=== PATIENT | male | born 1950 | race Hispanic/Latino ===

== ENCOUNTER 2018-09-23 20:07 | Emergency (ER) | payer MEDICAID, MEDICARE ==
--- NOTE | 2018-09-23 22:07 | Emergency Department Report ---
ED Psych HPI - General Chief Complaint: Psych Stated Complaint: PSYCH Time Seen by Provider: 09/23/18 21:41 Source: patient, EMS Mode of arrival: Stretcher Limitations: Physical Limitation (Psychiatric) - History of Present Illness MD Complaint: other (Abnormal behavior) -: Sudden Associated Psychiatric Symptoms: racing thoughts, auditory hallucinations Quality: constant Improves With: none Worsens With: none Context: not taking psychiatric Treatments Prior to Arrival: none - Related Data Home Medications Medication Instructions Recorded Confirmed Last Taken Unobtainable 09/23/18 09/23/18 Unknown Allergies Allergy/AdvReac Type Severity Reaction Status Date / Time No Known Allergies Allergy Unverified 09/23/18 20:20 ED Review of Systems ROS: Stated complaint: PSYCH Other details as noted in HPI Comment: All other systems reviewed and negative Constitutional: denies: chills, fever Eyes: denies: eye pain, eye discharge, vision change ENT: denies: ear pain, throat pain Respiratory: denies: cough, shortness of breath, wheezing Cardiovascular: denies: chest pain, palpitations Endocrine: no symptoms reported Gastrointestinal: denies: abdominal pain, nausea, diarrhea Genitourinary: denies: urgency, dysuria Musculoskeletal: denies: back pain, joint swelling, arthralgia Skin: denies: rash, lesions Neurological: denies: headache, weakness, paresthesias Psychiatric: auditory hallucinations, visual hallucinations. denies: anxiety, depression, homicidal thoughts, suicidal thoughts Hematological/Lymphatic: denies: easy bleeding, easy bruising ED Past Medical Hx - Past Medical History Additional medical history: unable to assess - Surgical History Additional Surgical History: unable to assess - Social History Smoking Status: Current Every Day Smoker - Medications Home Medications: Home Medications Medication Instructions Recorded Confirmed Last Taken Type Unobtainable 09/23/18 09/23/18 Unknown History ED Physical Exam - General Limitations: No Limitations General appearance: alert, anxious - Head Head exam: Present: atraumatic, normocephalic - Eye Eye exam: Present: normal appearance - ENT ENT exam: Present: mucous membranes moist - Neck Neck exam: Present: normal inspection - Respiratory Respiratory exam: Present: normal lung sounds bilaterally. Absent: respiratory distress - Cardiovascular Cardiovascular Exam: Present: regular rate, normal rhythm. Absent: systolic murmur, diastolic murmur, rubs, gallop - GI/Abdominal GI/Abdominal exam: Present: soft, normal bowel sounds - Rectal Rectal exam: Present: deferred - Extremities Exam Extremities exam: Present: normal inspection - Back Exam Back exam: Present: normal inspection - Neurological Exam Neurological exam: Present: alert, oriented X3 - Psychiatric Psychiatric exam: Present: anxious - Skin Skin exam: Present: warm, dry, intact, normal color. Absent: rash ED Course Vital Signs 09/23/18 20:17 Temperature 98.4 F Pulse Rate 112 H Respiratory 18 Rate Blood Pressure 160/90 O2 Sat by Pulse 98 Oximetry - Consultations Consultation #1: 09/24/18 03:51 I consulted the neurosurgeon medical authorization specialist Dr. Desouza at [facility]. She recommended transferring the patient's to [facility] for higher level. She will be the accepting physician at [facility]. ED Medical Decision Making - Lab Data Result diagrams: 09/23/18 22:31 09/23/18 22:31 Lab Results 09/23/18 09/23/18 09/23/18 Range/Units 22:31 22:31 22:31 WBC 9.4 (4.5-11.0) K/mm3 RBC 4.14 (3.65-5.03) M/mm3 Hgb 11.8 (11.8-15.2) gm/dl Hct 36.3 (35.5-45.6) % MCV 88 (84-94) fl MCH 28 (28-32) pg MCHC 33 (32-34) % RDW 14.1 (13.2-15.2) % Plt Count 326 (140-440) K/mm3 Lymph % (Auto) 28.6 (13.4-35.0) % Campbell % (Auto) 7.9 H (0.0-7.3) % Eos % (Auto) 1.3 (0.0-4.3) % Baso % (Auto) 0.7 (0.0-1.8) % Lymph # 2.7 (1.2-5.4) K/mm3 Campbell # 0.7 (0.0-0.8) K/mm3 Eos # 0.1 (0.0-0.4) K/mm3 Baso # 0.1 (0.0-0.1) K/mm3 Seg Neutrophils % 61.5 (40.0-70.0) % Seg Neutrophils # 5.8 (1.8-7.7) K/mm3 Sodium 138 (137-145) mmol/L Potassium 3.9 (3.6-5.0) mmol/L Chloride 101.6 (98-107) mmol/L Carbon Dioxide 24 (22-30) mmol/L Anion Gap 16 mmol/L BUN 16 (9-20) mg/dL Creatinine 0.7 L (0.8-1.5) mg/dL Estimated GFR > 60 ml/min BUN/Creatinine Ratio 23 % Glucose 76 (75-100) mg/dL Calcium 9.5 (8.4-10.2) mg/dL Total Bilirubin 0.30 (0.1-1.2) mg/dL AST 24 (5-40) units/L ALT 17 (7-56) units/L Alkaline Phosphatase 67 (35-129) units/L Total Protein 6.6 (6.3-8.2) g/dL Albumin 4.2 (3.9-5) g/dL Albumin/Globulin Ratio 1.8 % TSH 0.966 (0.270-4.200) mlU/mL Salicylates (2.8-20.0) mg/dL Acetaminophen (10.0-30.0) ug/mL Plasma/Serum Alcohol (0-0.07) % 09/23/18 09/23/18 09/23/18 Range/Units 22:31 22:31 22:31 WBC (4.5-11.0) K/mm3 RBC (3.65-5.03) M/mm3 Hgb (11.8-15.2) gm/dl Hct (35.5-45.6) % MCV (84-94) fl MCH (28-32) pg MCHC (32-34) % RDW (13.2-15.2) % Plt Count (140-440) K/mm3 Lymph % (Auto) (13.4-35.0) % Campbell % (Auto) (0.0-7.3) % Eos % (Auto) (0.0-4.3) % Baso % (Auto) (0.0-1.8) % Lymph # (1.2-5.4) K/mm3 [place] # (0.0-0.8) K/mm3 Eos # (0.0-0.4) K/mm3 Baso # (0.0-0.1) K/mm3 Seg Neutrophils % (40.0-70.0) % Seg Neutrophils # (1.8-7.7) K/mm3 Sodium (137-145) mmol/L Potassium (3.6-5.0) mmol/L Chloride (98-107) mmol/L Carbon Dioxide (22-30) mmol/L Anion Gap mmol/L BUN (9-20) mg/dL Creatinine (0.8-1.5) mg/dL Estimated GFR ml/min BUN/Creatinine Ratio % Glucose (75-100) mg/dL Calcium (8.4-10.2) mg/dL Total Bilirubin (0.1-1.2) mg/dL AST (5-40) units/L ALT (7-56) units/L Alkaline Phosphatase (35-129) units/L Total Protein (6.3-8.2) g/dL Albumin (3.9-5) g/dL Albumin/Globulin Ratio % TSH (0.270-4.200) mlU/mL Salicylates < 0.3 L (2.8-20.0) mg/dL Acetaminophen < 5.0 L (10.0-30.0) ug/mL Plasma/Serum Alcohol < 0.01 (0-0.07) % - Radiology Data Radiology results: report reviewed, image reviewed CT head showed subacute subdural hematoma. - Medical Decision Making Abnormal behavior. Subacute Subdural hematoma. Rescind the 1013. Transfer to [facility] for higher level of care. Critical Care Time: Yes Critical care time in (mins) excluding proc time.: 55 Critical care attestation.: If time is entered above; I have spent that time in minutes in the direct care of this critically ill patient, excluding procedure time. ED Disposition Clinical Impression: Bizarre behavior, Hallucinations, Subacute subdural hematoma Disposition: DC/TX-02 SHRT-TRM GEN HOSP IP Is pt being admited?: No Does the pt Need Aspirin: No Condition: Stable Time of Disposition: 03:58
[2018-09-23] MEDS ORDERED: ATIVAN PO ONE (22:08)
[2018-09-23 22:48] LABS: Basophils # (Auto) 0.1 K/mm3 (0.0-0.1); Basophils % (Auto) 0.7 % (0.0-1.8); Eosinophils # (Auto) 0.1 K/mm3 (0.0-0.4); Eosinophils % (Auto) 1.3 % (0.0-4.3); Hematocrit 36.3 % (35.5-45.6); Hemoglobin 11.8 gm/dl (11.8-15.2); Lymphocytes # (Auto) 2.7 K/mm3 (1.2-5.4); Lymphocytes % (Auto) 28.6 % (13.4-35.0); Mean Corpuscular HGB Conc 33 % (32-34); Mean Corpuscular Volume 88 fl (84-94); Monocytes # (Auto) 0.7 K/mm3 (0.0-0.8); Monocytes % (Auto) 7.9 % (0.0-7.3); Platelet Count 326 K/mm3 (140-440); Red Blood Count 4.14 M/mm3 (3.65-5.03); Red Cell Distribution Width 14.1 % (13.2-15.2)
[2018-09-23 23:04] LABS: Alanine Aminotransferase 17 units/L (7-56); Albumin 4.2 g/dL (3.9-5); BUN/Creatinine Ratio 23; Blood Urea Nitrogen 16 mg/dL (9-20); Calcium 9.5 mg/dL (8.4-10.2); Hemolysis Index 7
--- NOTE | 2018-09-23 23:29 | Cat Scan Report ---
FINAL REPORT EXAM: CT HEAD/BRAIN WO CON HISTORY: Medical Clearance Psych TECHNIQUE: 2.5 millimeter axial images from the skullbase to the vertex. Comparison: None FINDINGS: There is evidence of a right frontal parietal subdural collection that is isodense relative to cortex . This results in a mild degree of mass effect on the underlying brain. This measures approximately 4 millimeters in the maximal depth. This most likely represents a subacute subdural hematoma. Ventricular size concordant with the degree of atrophy. 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 There is no evidence of fracture. IMPRESSION: 1. Right frontal parietal subdural collection that most likely represents a subacute subdural hematom a. This results in a mild degree of mass effect on the underlying brain. This finding was discussed with Dr. Phillips at 11:25 p.m. September 23, 2018.
--- NOTE | 2018-09-24 00:04 | XRay Report ---
FINAL REPORT PROCEDURE: XR CHEST 1V AP TECHNIQUE: Chest radiograph anteroposterior view. CPT 17751 HISTORY: Medical Clearance Psych COMPARISON: No prior studies are available for comparison. FINDINGS: Heart: Normal. Mediastinum/Vessels: Normal. Lungs/Pleural space: Normal. Bony thorax: No acute osseous abnormality. Life support devices: None. IMPRESSION: No acute cardiopulmonary abnormality.
[2018-09-24 01:43] LABS: Bilirubin,Urine NEG (Negative); Blood,Urine NEG (Negative); Color,Urine Yellow (Yellow); Mucus,Urine FEW /HPF; Protein,Urine <15 mg/dL mg/dL (Negative); Urobilinogen,Urine < 2.0 mg/dL (<2.0)
--- NOTE | 2018-09-24 01:48 | Cat Scan Report ---
FINAL REPORT PROCEDURE: CT CERVICAL SPINE WO CON TECHNIQUE: Computerized tomography of the cervical spine was performed from the skull base to T1 wit hout contrast material. HISTORY: Possible fall COMPARISON: No prior studies are available for comparison. FINDINGS: The alignment of the vertebral segments is normal. There is loss of disc space height at the C5-6 and C6-7 levels. Moderate spur formation off of the vertebral segments is identified from the C4 through the C7 vertebral levels. Moderate circumferential bulging disc associated with posterior spur format ion with at the C5-6 and C6-7 levels does cause slight impingement upon the cervical cord. The remain lois of the canal is patent. IMPRESSION: No evidence of an acute fracture or dislocation. Moderate cervical spondylosis and degenerative disc changes as described..
[2018-09-24 02:23] LABS: Amphetamine Screen,Urine PRESUMPTIVE NEGATIVE; Benzodiazepines Screen,Urine PRESUMPTIVE NEGATIVE; Cannabinoid Screen,Urine PRESUMPTIVE NEGATIVE; Cocaine Screen,Urine PRESUMPTIVE NEGATIVE; Methadone Screen,Urine PRESUMPTIVE NEGATIVE; Opiate Screen,Urine PRESUMPTIVE NEGATIVE
[2018-09-24 06:02] VITALS: BP 116/67
== END 2018-09-24 06:43 | disposition short-term general hospital (02) ==
LOC: ED 20:07
DX: I62.02 Nontraumatic subacute subdural hemorrhage (principal); R44.0 Auditory hallucinations; R46.89 Other symptoms and signs involving appearance and behavior; F17.200 Nicotine dependence, unspecified, uncomplicated
CPT/HCPCS: 36415; 70450; 71045; 72125; 80053; 80307; 81001; 84443; 85025; 99291; G0480; 80320

== ENCOUNTER 2018-12-01 14:59 | Emergency (ER) | payer MEDICARE ==
[2018-12-01 16:55] LABS: Basophils % (Auto) 0.6 % (0.0-1.8); Eosinophils % (Auto) 0.6 % (0.0-4.3); Hematocrit 36.7 % (35.5-45.6); Hemoglobin 11.9 gm/dl (11.8-15.2); Lymphocytes % (Auto) 29.5 % (13.4-35.0); Mean Corpuscular HGB Conc 32 % (32-34); Mean Corpuscular Volume 86 fl (84-94); Monocytes # (Auto) 0.5 K/mm3 (0.0-0.8); Monocytes % (Auto) 6.7 % (0.0-7.3); Platelet Count 298 K/mm3 (140-440); Red Blood Count 4.25 M/mm3 (3.65-5.03); Red Cell Distribution Width 14.3 % (13.2-15.2)
[2018-12-01 17:11] LABS: BUN/Creatinine Ratio 11; Blood Urea Nitrogen 9 mg/dL (9-20); Calcium 9.7 mg/dL (8.4-10.2); Hemolysis Index 13
--- NOTE | 2018-12-01 18:49 | Emergency Department Report ---
ED Psych HPI - General Chief Complaint: Psych Stated Complaint: SUICIDE ATTEMPT Time Seen by Provider: 12/01/18 16:13 Source: EMS Mode of arrival: Stretcher Limitations: Other (psych) - History of Present Illness Initial Comments: 67 yo the past medical history of schizophrenia and bipolar disorder [place] the hospital [place] [employer]. Staff at assisted living state that patient was attempting to jump from the second story balcony. Patient denies any pain currently. Denies suicidal ideation stating if he wanted to kill himself he would have done it. He states he was trying to go out the window. Pt is easily distracted and needs redirecting during questioning. - Related Data Home Medications Medication Instructions Recorded Confirmed Last Taken Divalproex Sodium 250 mg PO QHS 12/01/18 12/01/18 Unknown Donepezil HCl 5 mg PO HS 12/01/18 12/01/18 Unknown Invega Sustenna 156 mg IM QMONTH 12/01/18 12/01/18 11/12/18 OLANZapine 20 mg PO HS 12/01/18 12/01/18 Unknown Olanzapine [Olanzapine Odt] 10 mg PO DAILY 12/01/18 12/01/18 Unknown RisperDAL 2 mg PO HS 12/01/18 12/01/18 Unknown Temazepam 15 mg PO QHS 12/01/18 12/01/18 Unknown traZODone 100 mg PO QHS 12/01/18 12/01/18 Unknown Allergies Allergy/AdvReac Type Severity Reaction Status Date / Time No Known Allergies Allergy Unverified 09/23/18 20:20 ED Review of Systems ROS: Stated complaint: SUICIDE ATTEMPT Other details as noted in HPI Comment: All other systems reviewed and negative ED Past Medical Hx - Past Medical History Hx Psychiatric Treatment: Yes (schitzoprenia, bipolar) Additional medical history: unable to assess - Surgical History Additional Surgical History: unable to assess - Social History Smoking Status: Unknown if ever smoked Substance Use Type: None - Medications Home Medications: Home Medications Medication Instructions Recorded Confirmed Last Taken Type Divalproex Sodium 250 mg PO QHS 12/01/18 12/01/18 Unknown History Donepezil HCl 5 mg PO HS 12/01/18 12/01/18 Unknown History Invega Sustenna 156 mg IM QMONTH 12/01/18 12/01/18 11/12/18 History OLANZapine 20 mg PO HS 12/01/18 12/01/18 Unknown History Olanzapine [Olanzapine Odt] 10 mg PO DAILY 12/01/18 12/01/18 Unknown History RisperDAL 2 mg PO HS 12/01/18 12/01/18 Unknown History Temazepam 15 mg PO QHS 12/01/18 12/01/18 Unknown History traZODone 100 mg PO QHS 12/01/18 12/01/18 Unknown History ED Physical Exam - General Limitations: No Limitations - Other Other exam information: General: No limitations, patient is alert in no acute distress Head exam: Atraumatic, normocephalic Eyes exam: Normal appearance ENT: Moist mucous membrane Neck exam: Normal inspection, full range of motion, no meningismus nontender Respiratory exam: Clear to auscultation bilateral, no wheezes, rales, crackles Cardiovascular: Normal rate and rhythm, normal heart sounds Abdomen: Soft, nondistended, and nontender, with normal bowel sounds, no rebound, or guarding Extremity: Full range of motion normal inspection no deformity Back: Normal Inspection, full range of motion, no tenderness Neurologic: Alert, no slurred speech no gross motor or sensory deficit Psychiatric: normal affect, normal mood Skin: Warm, dry, intact ED Course Vital Signs 12/01/18 12/01/18 12/02/18 15:34 19:54 07:56 Temperature 98.5 F 99.1 F 98.7 F Pulse Rate 98 H 99 H 100 H Respiratory 18 18 20 Rate Blood Pressure 144/58 Blood Pressure 124/91 136/84 [Left] O2 Sat by Pulse 97 96 99 Oximetry ED Medical Decision Making - Lab Data Result diagrams: 12/01/18 16:37 12/01/18 16:37 Lab Results 12/01/18 12/01/18 12/01/18 Range/Units 16:37 16:37 16:37 WBC 6.8 (4.5-11.0) K/mm3 RBC 4.25 (3.65-5.03) M/mm3 Hgb 11.9 (11.8-15.2) gm/dl Hct 36.7 (35.5-45.6) % MCV 86 (84-94) fl MCH 28 (28-32) pg MCHC 32 (32-34) % RDW 14.3 (13.2-15.2) % Plt Count 298 (140-440) K/mm3 Lymph % (Auto) 29.5 (13.4-35.0) % Howard % (Auto) 6.7 (0.0-7.3) % Eos % (Auto) 0.6 (0.0-4.3) % Baso % (Auto) 0.6 (0.0-1.8) % Lymph # 2.0 (1.2-5.4) K/mm3 Howard # 0.5 (0.0-0.8) K/mm3 Eos # 0.0 (0.0-0.4) K/mm3 Baso # 0.0 (0.0-0.1) K/mm3 Seg Neutrophils % 62.6 (40.0-70.0) % Seg Neutrophils # 4.3 (1.8-7.7) K/mm3 Sodium 142 (137-145) mmol/L Potassium 4.3 (3.6-5.0) mmol/L Chloride 105.0 (98-107) mmol/L Carbon Dioxide 27 (22-30) mmol/L Anion Gap 14 mmol/L BUN 9 (9-20) mg/dL Creatinine 0.8 (0.8-1.5) mg/dL Estimated GFR > 60 ml/min BUN/Creatinine Ratio 11 % Glucose 65 L (75-100) mg/dL Calcium 9.7 (8.4-10.2) mg/dL Urine Color (Yellow) Urine Turbidity (Clear) Urine pH (5.0-7.0) Ur Specific Hayes (1.003-1.030) Urine Protein (Negative) mg/dL Urine Glucose (UA) (Negative) mg/dL Urine Ketones (Negative) mg/dL Urine Blood (Negative) Urine Nitrite (Negative) Urine Bilirubin (Negative) Urine Urobilinogen (<2.0) mg/dL Ur Leukocyte Esterase (Negative) Urine WBC (Auto) (0.0-6.0) /HPF Urine RBC (Auto) (0.0-6.0) /HPF U Epithel Cells (Auto) (0-13.0) /HPF Urine Mucus /HPF Salicylates < 0.3 L (2.8-20.0) mg/dL Urine Opiates Screen Urine Methadone Screen Acetaminophen (10.0-30.0) ug/mL Ur Barbiturates Screen Ur Phencyclidine Scrn Ur Amphetamines Screen U Benzodiazepines Scrn Urine Cocaine Screen U Marijuana (THC) Screen Drugs of Abuse Note Plasma/Serum Alcohol (0-0.07) % 12/01/18 12/01/18 12/01/18 Range/Units 16:37 16:37 18:13 WBC (4.5-11.0) K/mm3 RBC (3.65-5.03) M/mm3 Hgb (11.8-15.2) gm/dl Hct (35.5-45.6) % MCV (84-94) fl MCH (28-32) pg MCHC (32-34) % RDW (13.2-15.2) % Plt Count (140-440) K/mm3 Lymph % (Auto) (13.4-35.0) % Howard % (Auto) (0.0-7.3) % Eos % (Auto) (0.0-4.3) % Baso % (Auto) (0.0-1.8) % Lymph # (1.2-5.4) K/mm3 Howard # (0.0-0.8) K/mm3 Eos # (0.0-0.4) K/mm3 Baso # (0.0-0.1) K/mm3 Seg Neutrophils % (40.0-70.0) % Seg Neutrophils # (1.8-7.7) K/mm3 Sodium (137-145) mmol/L Potassium (3.6-5.0) mmol/L Chloride (98-107) mmol/L Carbon Dioxide (22-30) mmol/L Anion Gap mmol/L BUN (9-20) mg/dL Creatinine (0.8-1.5) mg/dL Estimated GFR ml/min BUN/Creatinine Ratio % Glucose (75-100) mg/dL Calcium (8.4-10.2) mg/dL Urine Color Yellow (Yellow) Urine Turbidity Clear (Clear) Urine pH 7.0 (5.0-7.0) Ur Specific Hayes 1.013 (1.003-1.030) Urine Protein <15 mg/dl (Negative) mg/dL Urine Glucose (UA) Neg (Negative) mg/dL Urine Ketones Tr (Negative) mg/dL Urine Blood Neg (Negative) Urine Nitrite Neg (Negative) Urine Bilirubin Neg (Negative) Urine Urobilinogen 2.0 (<2.0) mg/dL Ur Leukocyte Esterase Neg (Negative) Urine WBC (Auto) < 1.0 (0.0-6.0) /HPF Urine RBC (Auto) < 1.0 (0.0-6.0) /HPF U Epithel Cells (Auto) 2.0 (0-13.0) /HPF Urine Mucus Few /HPF Salicylates (2.8-20.0) mg/dL Urine Opiates Screen Urine Methadone Screen Acetaminophen < 5.0 L (10.0-30.0) ug/mL Ur Barbiturates Screen Ur Phencyclidine Scrn Ur Amphetamines Screen U Benzodiazepines Scrn Urine Cocaine Screen U Marijuana (THC) Screen Drugs of Abuse Note Plasma/Serum Alcohol < 0.01 (0-0.07) % 12/01/18 Range/Units 18:13 WBC (4.5-11.0) K/mm3 RBC (3.65-5.03) M/mm3 Hgb (11.8-15.2) gm/dl Hct (35.5-45.6) % MCV (84-94) fl MCH (28-32) pg MCHC (32-34) % RDW (13.2-15.2) % Plt Count (140-440) K/mm3 Lymph % (Auto) (13.4-35.0) % Howard % (Auto) (0.0-7.3) % Eos % (Auto) (0.0-4.3) % Baso % (Auto) (0.0-1.8) % Lymph # (1.2-5.4) K/mm3 Howard # (0.0-0.8) K/mm3 Eos # (0.0-0.4) K/mm3 Baso # (0.0-0.1) K/mm3 Seg Neutrophils % (40.0-70.0) % Seg Neutrophils # (1.8-7.7) K/mm3 Sodium (137-145) mmol/L Potassium (3.6-5.0) mmol/L Chloride (98-107) mmol/L Carbon Dioxide (22-30) mmol/L Anion Gap mmol/L BUN (9-20) mg/dL Creatinine (0.8-1.5) mg/dL Estimated GFR ml/min BUN/Creatinine Ratio % Glucose (75-100) mg/dL Calcium (8.4-10.2) mg/dL Urine Color (Yellow) Urine Turbidity (Clear) Urine pH (5.0-7.0) Ur Specific Hayes (1.003-1.030) Urine Protein (Negative) mg/dL Urine Glucose (UA) (Negative) mg/dL Urine Ketones (Negative) mg/dL Urine Blood (Negative) Urine Nitrite (Negative) Urine Bilirubin (Negative) Urine Urobilinogen (<2.0) mg/dL Ur Leukocyte Esterase (Negative) Urine WBC (Auto) (0.0-6.0) /HPF Urine RBC (Auto) (0.0-6.0) /HPF U Epithel Cells (Auto) (0-13.0) /HPF Urine Mucus /HPF Salicylates (2.8-20.0) mg/dL Urine Opiates Screen Presumptive negative Urine Methadone Screen Presumptive negative Acetaminophen (10.0-30.0) ug/mL Ur Barbiturates Screen Presumptive negative Ur Phencyclidine Scrn Presumptive negative Ur Amphetamines Screen Presumptive negative U Benzodiazepines Scrn Presumptive negative Urine Cocaine Screen Presumptive negative U Marijuana (THC) Screen Presumptive negative Drugs of Abuse Note Disclamer Plasma/Serum Alcohol (0-0.07) % - Differential Diagnosis schizophrenia, bipolar, psychosis, suicidal Critical Care Time: No Critical care attestation.: If time is entered above; I have spent that time in minutes in the direct care of this critically ill patient, excluding procedure time. ED Disposition Clinical Impression: Suicidal behavior, Schizophrenia, Psychoses, Bipolar disorder, Medical clearance for psychiatric admission Disposition: DC/TX-65 PSY HOSP/PSY UNIT Is pt being admited?: No Condition: Stable Time of Disposition: 19:16
[2018-12-01 19:32] LABS: Bilirubin,Urine NEG (Negative); Blood,Urine NEG (Negative); Color,Urine Yellow (Yellow); Mucus,Urine FEW /HPF; Protein,Urine <15 mg/dL mg/dL (Negative); RBC,Urine < 1.0 /HPF (0.0-6.0); WBC,Urine < 1.0 /HPF (0.0-6.0)
[2018-12-01] MEDS ORDERED: GEODON IM PRN (20:00)
[2018-12-01 21:53] LABS: Amphetamine Screen,Urine PRESUMPTIVE NEGATIVE; Benzodiazepines Screen,Urine PRESUMPTIVE NEGATIVE; Cannabinoid Screen,Urine PRESUMPTIVE NEGATIVE; Cocaine Screen,Urine PRESUMPTIVE NEGATIVE; Methadone Screen,Urine PRESUMPTIVE NEGATIVE; Opiate Screen,Urine PRESUMPTIVE NEGATIVE
[2018-12-02 07:58] VITALS: BP 136/84
== END 2018-12-02 10:00 ==
LOC: ED 14:59
DX: F31.9 Bipolar disorder, unspecified (principal); F29 Unspecified psychosis not due to a substance or known physiological condition; F20.9 Schizophrenia, unspecified
CPT/HCPCS: 36415; 80048; 80307; 81001; 85025; 96372; 99285; G0480; J3486; 80320

== ENCOUNTER 2018-12-19 20:56 | Emergency (ER) | payer MEDICARE ==
[2018-12-19 21:47] LABS: Basophils # (Auto) 0.1 K/mm3 (0.0-0.1); Basophils % (Auto) 0.8 % (0.0-1.8); Eosinophils # (Auto) 0.2 K/mm3 (0.0-0.4); Eosinophils % (Auto) 2.9 % (0.0-4.3); Hematocrit 35.7 % (35.5-45.6); Hemoglobin 11.6 gm/dl (11.8-15.2); Lymphocytes % (Auto) 31.9 % (13.4-35.0); Mean Corpuscular HGB Conc 33 % (32-34); Mean Corpuscular Volume 86 fl (84-94); Monocytes # (Auto) 0.6 K/mm3 (0.0-0.8); Platelet Count 324 K/mm3 (140-440); Red Blood Count 4.15 M/mm3 (3.65-5.03); Red Cell Distribution Width 15.2 % (13.2-15.2)
[2018-12-19 22:15] LABS: BUN/Creatinine Ratio 12; Blood Urea Nitrogen 11 mg/dL (9-20); Calcium 9.7 mg/dL (8.4-10.2); Hemolysis Index 5
[2018-12-20] MEDS ORDERED: GEODON IM ONE (00:26)
--- NOTE | 2018-12-20 03:19 | Emergency Department Report ---
ED Psych HPI - General Chief Complaint: Psych Stated Complaint: 1013/MH Time Seen by Provider: 12/20/18 00:21 Source: patient, police Mode of arrival: Ambulatory - History of Present Illness Initial Comments: Mr. Dominguez is a 68 yo male with hx of schizophrenia placed on 1013 by [employer] prior to arrival. Brought from [facility] with hx of aggressive behavior. Mr. Dominguez gives limited hx. He nods and shakes head to questions. Keeps pointing to his chest and pulling at clothes. somewhat cooperative. Denies pain. - Related Data Home Medications Medication Instructions Recorded Confirmed Last Taken Divalproex Sodium 250 mg PO QHS 12/01/18 12/01/18 Unknown Donepezil HCl 5 mg PO HS 12/01/18 12/01/18 Unknown Invega Sustenna 156 mg IM QMONTH 12/01/18 12/01/18 11/12/18 OLANZapine 20 mg PO HS 12/01/18 12/01/18 Unknown Olanzapine [Olanzapine Odt] 10 mg PO DAILY 12/01/18 12/01/18 Unknown RisperDAL 2 mg PO HS 12/01/18 12/01/18 Unknown Temazepam 15 mg PO QHS 12/01/18 12/01/18 Unknown traZODone 100 mg PO QHS 12/01/18 12/01/18 Unknown Allergies Allergy/AdvReac Type Severity Reaction Status Date / Time No Known Allergies Allergy Unverified 09/23/18 20:20 ED Review of Systems ROS: Stated complaint: 1013/MH Other details as noted in HPI Comment: Unobtainable due to pts medical conditions (limited hx from patient) ED Past Medical Hx - Past Medical History Previous Medical History?: Yes Hx Psychiatric Treatment: Yes (schitzoprenia, bipolar) Additional medical history: unable to assess - Surgical History Additional Surgical History: unable to assess - Social History Smoking Status: Current Every Day Smoker Substance Use Type: Alcohol, Marijuana - Medications Home Medications: Home Medications Medication Instructions Recorded Confirmed Last Taken Type Divalproex Sodium 250 mg PO QHS 12/01/18 12/01/18 Unknown History Donepezil HCl 5 mg PO HS 12/01/18 12/01/18 Unknown History Invega Sustenna 156 mg IM QMONTH 12/01/18 12/01/18 11/12/18 History OLANZapine 20 mg PO HS 12/01/18 12/01/18 Unknown History Olanzapine [Olanzapine Odt] 10 mg PO DAILY 12/01/18 12/01/18 Unknown History RisperDAL 2 mg PO HS 12/01/18 12/01/18 Unknown History Temazepam 15 mg PO QHS 12/01/18 12/01/18 Unknown History traZODone 100 mg PO QHS 12/01/18 12/01/18 Unknown History ED Physical Exam - General Limitations: No Limitations General appearance: alert, in no apparent distress, other (walking around padded room) - Head Head exam: Present: atraumatic, normocephalic - Eye Eye exam: Present: normal appearance - ENT ENT exam: Present: mucous membranes moist - Neck Neck exam: Present: normal inspection, full ROM - Respiratory Respiratory exam: Present: normal lung sounds bilaterally. Absent: respiratory distress, wheezes, rales, rhonchi - Cardiovascular Cardiovascular Exam: Present: regular rate, normal rhythm, normal heart sounds. Absent: systolic murmur, diastolic murmur, rubs, gallop - GI/Abdominal GI/Abdominal exam: Present: soft, normal bowel sounds. Absent: distended, tenderness, guarding, rebound - Rectal Rectal exam: Present: deferred - Extremities Exam Extremities exam: Present: normal inspection - Back Exam Back exam: Present: normal inspection - Neurological Exam Neurological exam: Present: alert, oriented X3 - Psychiatric Psychiatric exam: Present: flat affect - Skin Skin exam: Present: warm, dry, intact, normal color. Absent: rash ED Course Vital Signs 12/19/18 21:13 Temperature 98.1 F Pulse Rate 85 Respiratory 16 Rate Blood Pressure 148/75 O2 Sat by Pulse 97 Oximetry ED Medical Decision Making - Lab Data Result diagrams: 12/19/18 21:27 12/19/18 21:27 Laboratory Results - last 24 hr 12/19/18 12/19/18 12/19/18 21:27 21:27 21:27 WBC RBC Hgb Hct MCV MCH MCHC RDW Plt Count Lymph % (Auto) [place] % (Auto) Eos % (Auto) Baso % (Auto) Lymph # [place] # Eos # Baso # Seg Neutrophils % Seg Neutrophils # Sodium 142 Potassium 4.2 Chloride 103.3 Carbon Dioxide 31 H Anion Gap 12 BUN 11 Creatinine 0.9 Estimated GFR > 60 BUN/Creatinine Ratio 12 Glucose 120 H Calcium 9.7 Salicylates < 0.3 L Acetaminophen < 5.0 L Plasma/Serum Alcohol 12/19/18 12/19/18 21:27 21:27 WBC 6.3 RBC 4.15 Hgb 11.6 L Hct 35.7 MCV 86 MCH 28 MCHC 33 RDW 15.2 Plt Count 324 Lymph % (Auto) 31.9 [place] % (Auto) 9.0 H Eos % (Auto) 2.9 Baso % (Auto) 0.8 Lymph # 2.0 [place] # 0.6 Eos # 0.2 Baso # 0.1 Seg Neutrophils % 55.4 Seg Neutrophils # 3.5 Sodium Potassium Chloride Carbon Dioxide Anion Gap BUN Creatinine Estimated GFR BUN/Creatinine Ratio Glucose Calcium Salicylates Acetaminophen Plasma/Serum Alcohol < 0.01 - Medical Decision Making Mr. Dominguez presents with aggressive behavior from [facility]. on 1012 involuntary hold from [facility]. Will continue involuntary hold. Due to impulsive nature and limited insight, Mr. Dominguez will need further psychiatric care. He is medically clear for psychiatric care. NOraml vital signs. Normal cbc, bmp, tox screen. Critical care attestation.: If time is entered above; I have spent that time in minutes in the direct care of this critically ill patient, excluding procedure time. ED Disposition Clinical Impression: Combative behavior, Schizophrenia, acute, Bipolar affective disorder Disposition: DC/TX-65 PSY HOSP/PSY UNIT Is pt being admited?: No Does the pt Need Aspirin: No Condition: Stable
--- NOTE | 2018-12-20 14:22 | Consultation ---
History of Present Illness - Reason for Consult Consult date: 12/20/18 Reason for consult: Mental Health Evaluation Requesting physician: KATIE ORDOÑEZ - Chief Complaint Chief complaint: "You brought me here" - History of Present Psychiatric Illness 68 y.o. AA male who presented to the ER for agressive behavior and acute psychosis. Today the patient is disorganized during the assessment. Per the sta ff, the patient had to be placed in the seclusion room prior to being interview by myself. He was asked several questions about his mental health, his answers were not logical. He had to be redirected several times to keep him on topic. At this time, the patient is a poor historian. No gestures of SI/HI's. Medications and Allergies Allergies Allergy/AdvReac Type Severity Reaction Status Date / Time No Known Allergies Allergy Unverified 09/23/18 20:20 Home Medications Medication Instructions Recorded Confirmed Last Taken Type Divalproex Sodium 250 mg PO QHS 12/01/18 12/01/18 Unknown History Donepezil HCl 5 mg PO HS 12/01/18 12/01/18 Unknown History Invega Sustenna 156 mg IM QMONTH 12/01/18 12/01/18 11/12/18 History OLANZapine 20 mg PO HS 12/01/18 12/01/18 Unknown History Olanzapine [Olanzapine Odt] 10 mg PO DAILY 12/01/18 12/01/18 Unknown History RisperDAL 2 mg PO HS 12/01/18 12/01/18 Unknown History Temazepam 15 mg PO QHS 12/01/18 12/01/18 Unknown History traZODone 100 mg PO QHS 12/01/18 12/01/18 Unknown History Past psychiatric history - Past Medical History Past Medical History: other (Unabel to obtain) Past Surgical History: Other (Unable to obtain) - past Psychiatric treatment and history psychiatric treatment history: Unable to obtain a psy hx and fam psy hx. - Social History Social history: other (Unabel to obtain) Mental Status Exam - Vital signs Last Vital Signs Temp 98.5 F 12/20/18 10:06 Pulse 94 H 12/20/18 10:06 Resp 20 12/20/18 08:12 BP 142/74 12/20/18 10:06 Pulse Ox 94 12/20/18 08:12 - Exam Narrative exam: MSE: Appearance: calm Behavior: regular eye contact Speech: regular rate and tone Mood: labile Affect: congruent to mood Thought Process: disorganized, loose associations Thought Content: no gestures of SI/HI's, delusional Motor Activity: ambulatory Cognition: A/Ox 3 Insight: poor Judgment: poor Results Result Diagrams: 12/19/18 21:27 12/19/18 21:27 Abnormal lab results 12/19/18 12/19/18 12/19/18 Range/Units 21:27 21:27 21:27 Hgb (11.8-15.2) gm/dl [place] % (Auto) (0.0-7.3) % Carbon Dioxide 31 H (22-30) mmol/L Glucose 120 H (75-100) mg/dL Salicylates < 0.3 L (2.8-20.0) mg/dL Acetaminophen < 5.0 L (10.0-30.0) ug/mL 12/19/18 Range/Units 21:27 Hgb 11.6 L (11.8-15.2) gm/dl [place] % (Auto) 9.0 H (0.0-7.3) % Carbon Dioxide (22-30) mmol/L Glucose (75-100) mg/dL Salicylates (2.8-20.0) mg/dL Acetaminophen (10.0-30.0) ug/mL All other labs normal. Assessment and Plan Assessment and plan: Impression: Unspecified Psychosis. Today the patient is disorganized during the assessment. UDS is negative. DDx: Schizophrenia, Bipolar DO with psychosis Recommendation/Plan: Continue 1013 and stary Zyprexa 5 mg Po HS for psychosis. Attempted to discuss possible metabolic side effects of Zyprexa with the patient. Dispo: The patient was referred to inpatient psy services. Will staff with Dr José Miguel Fermin.
[2018-12-20 14:29] LABS: Bilirubin,Urine NEG (Negative); Blood,Urine NEG (Negative); Color,Urine Yellow (Yellow); Protein,Urine <15 mg/dL mg/dL (Negative); Urobilinogen,Urine < 2.0 mg/dL (<2.0)
[2018-12-20 14:33] LABS: Amphetamine Screen,Urine PRESUMPTIVE NEGATIVE; Benzodiazepines Screen,Urine PRESUMPTIVE NEGATIVE; Cannabinoid Screen,Urine PRESUMPTIVE NEGATIVE; Cocaine Screen,Urine PRESUMPTIVE NEGATIVE; Methadone Screen,Urine PRESUMPTIVE NEGATIVE; Opiate Screen,Urine PRESUMPTIVE NEGATIVE
[2018-12-20 17:07] VITALS: BP 127/70
== END 2018-12-20 17:25 ==
LOC: ED 20:56 → EEVIPCON 20:56 → ED 12-20 17:25
DX: F31.9 Bipolar disorder, unspecified (principal); F20.9 Schizophrenia, unspecified; F17.200 Nicotine dependence, unspecified, uncomplicated; F12.90 Cannabis use, unspecified, uncomplicated
CPT/HCPCS: 36415; 80048; 80307; 81001; 85025; 96372; 99285; G0480; J3486; 80320

== ENCOUNTER 2019-02-22 23:45 | Emergency (ER) | payer MEDICARE ==
[2019-02-23] MEDS ORDERED: HALDOL IM PRN (00:03)
--- NOTE | 2019-02-23 00:11 | Emergency Department Report ---
ED General Adult HPI - General Chief complaint: Psych Stated complaint: MH EVALUATION Time Seen by Provider: 02/23/19 00:02 Source: RN notes reviewed, old records reviewed Mode of arrival: Stretcher Limitations: Altered Mental Status - History of Present Illness Initial comments: This is a 68-year-old gentleman. The patient is not known to this provider previously. His past history includes schizophrenia and bipolar. He has had prior psychiatric evaluations at this hospital. History entirely obtained from old medical records from triage note doc umcharly. Apparently, the patient presented with a family friend, who reports that the patient has had a "mental break." The patient will not answer any of my questions, but reported auditory jameson ucinations and delusions to the triage nurse, and apparently, the patient has been exhibiting violent behavior, and the patient has been playing with an consuming his own feces. In addition, the friend, who is not currently available for collateral information, stated that the patient indicated that he wanted to kill himself early. In the emergency room, the patient is awake, watching TV, moving arms and legs, and will respond to some commands, but will not answer open-ended questions are close and it questions. He is therefore not able to describe exacerbating or relieving factors, qualitative nature of his symptoms, radiation. Currently, no friends and/or family are available at this point time for collateral information. -: unknown Radiation: other Severity scale (0 -10): 0 Quality: other Consistency: other Improves with: other Worsens with: other Associated Symptoms: other - Related Data Home Medications Medication Instructions Recorded Confirmed Last Taken Divalproex Sodium 250 mg PO QHS 12/01/18 12/01/18 Unknown Donepezil HCl 5 mg PO HS 12/01/18 12/01/18 Unknown Invega Sustenna 156 mg IM QMONTH 12/01/18 12/01/18 11/12/18 OLANZapine 20 mg PO HS 12/01/18 12/01/18 Unknown Olanzapine [Olanzapine Odt] 10 mg PO DAILY 12/01/18 12/01/18 Unknown RisperDAL 2 mg PO HS 12/01/18 12/01/18 Unknown Temazepam 15 mg PO QHS 12/01/18 12/01/18 Unknown traZODone 100 mg PO QHS 12/01/18 12/01/18 Unknown Previous Rx's Medication Instructions Recorded Last Taken Type Nitrofurantoin [place]/M-Cryst 100 mg PO Q12HR #13 capsule 02/23/19 Unknown Rx [Macrobid CAP] Allergies Allergy/AdvReac Type Severity Reaction Status Date / Time No Known Allergies Allergy Verified 12/20/18 15:09 ED Review of Systems ROS: Stated complaint: MH EVALUATION Other details as noted in HPI Comment: Unobtainable due to pts medical conditions ED Past Medical Hx - Past Medical History Previous Medical History?: Yes Hx Psychiatric Treatment: Yes (schitzoprenia, bipolar) Additional medical history: unable to assess - Surgical History Past Surgical History?: No Additional Surgical History: unable to assess - Social History Smoking Status: Never Smoker Substance Use Type: None - Medications Home Medications: Home Medications Medication Instructions Recorded Confirmed Last Taken Type Divalproex Sodium 250 mg PO QHS 12/01/18 12/01/18 Unknown History Donepezil HCl 5 mg PO HS 12/01/18 12/01/18 Unknown History Invega Sustenna 156 mg IM QMONTH 12/01/18 12/01/18 11/12/18 History OLANZapine 20 mg PO HS 12/01/18 12/01/18 Unknown History Olanzapine [Olanzapine Odt] 10 mg PO DAILY 12/01/18 12/01/18 Unknown History RisperDAL 2 mg PO HS 12/01/18 12/01/18 Unknown History Temazepam 15 mg PO QHS 12/01/18 12/01/18 Unknown History traZODone 100 mg PO QHS 12/01/18 12/01/18 Unknown History Nitrofurantoin [place]/M-Cryst 100 mg PO Q12HR #13 capsule 02/23/19 Unknown Rx [Macrobid CAP] ED Physical Exam - General Limitations: Other (patient psychotic and disorganized. Mumbling incoherently) General appearance: alert, anxious - Head Head exam: Present: atraumatic, normocephalic - Eye Eye exam: Present: normal appearance, PERRL, EOMI - ENT ENT exam: Present: normal exam, normal orophraynx, mucous membranes moist, normal external ear exam - Neck Neck exam: Present: normal inspection, full ROM. Absent: tenderness, meningismus - Respiratory Respiratory exam: Present: normal lung sounds bilaterally. Absent: respiratory distress - Cardiovascular Cardiovascular Exam: Present: regular rate, normal rhythm, normal heart sounds. Absent: bradycardia, tachycardia, irregular rhythm, systolic murmur, diastolic murmur, rubs, gallop - GI/Abdominal GI/Abdominal exam: Present: soft. Absent: distended, tenderness, guarding, rebound, rigid, pulsatile mass - Rectal Rectal exam: Present: deferred - Extremities Exam Extremities exam: Present: normal inspection, full ROM, other (2+ pulses noted in the bilateral upper, lower extremities. Compartments soft. No long bony tenderness. The pelvis is stable.). Absent: calf tenderness - Back Exam Back exam: Present: normal inspection, full ROM. Absent: tenderness, CVA tende rness (R), CVA tenderness (L), paraspinal tenderness, vertebral tenderness - Neurological Exam Neurological exam: Present: altered, other (the patient is awake. The patient is watching TV. The patient is mumbling nonsensically. The patient follows some commands. He is moving 4 extremities spontaneously. Detailed neurologic examination not performed secondary to patient's inability to cooperate, and active psychosis) - Psychiatric Psychiatric exam: Present: anxious - Skin Skin exam: Present: warm, dry, intact, normal color. Absent: rash ED Course Vital Signs 02/22/19 02/23/19 23:54 02:21 Temperature 98.2 F Pulse Rate 94 H 77 Respiratory 18 16 Rate Blood Pressure 138/75 137/81 [Right] O2 Sat by Pulse 100 Oximetry - Reevaluation(s) Reevaluation #1: 02/23/19 01:47 Differential diagnosis, including but not limited to: Psychosis, electrolyte derangement, pneumonia, urinary tract infection, intracranial lesion, medical clearance for psychiatric placement Assessment and plan: 68-year-old gentleman, known history of psychiatric disease, previous history of 1013 at this hospital, presenting with presumed decompensated psychosis. He is afebrile with reassuring vital signs. His objective physical examination is unremarkable. Screening laboratory tests unremarkable. Noncontrast CT scan of brain negative for acute disease. No indication of blunt trauma above the clavicles, and there is no history of blunt trauma. The patient is placed on the 1013. A psychiatric consultation has been requested. Urinalysis pending for medical clearance. Thus far, the patient does not appear to have an immediate medical contraindication to psychiatric admission, evaluation, consultation. Reevaluation #2: 02/23/19 02:37 Resting comfortably, and in no acute distress. Vital signs unremarkable. Urinalysis suggestive of asymptomatic bacteriuria versus urinary tract infection. We will cover the patient empirically with Macrobid. Recommend 100 mg, twice daily, for the next 7 days. Initial dose ordered in the emergency room. At this point in time, the patient does not appear to have an immediate medical contraindication to psychiatric admission, evaluation, and placement. ED Medical Decision Making - Lab Data Result diagrams: 02/23/19 00:13 02/23/19 00:13 Vital Signs 02/22/19 23:54 Temperature 98.2 F Pulse Rate 94 H Respiratory 18 Rate Blood Pressure 138/75 [Right] O2 Sat by Pulse 100 Oximetry Lab Results 02/23/19 02/23/19 02/23/19 Range/Units 00:13 00:13 00:13 WBC 11.8 H (4.5-11.0) K/mm3 RBC 4.57 (3.65-5.03) M/mm3 Hgb 12.9 (11.8-15.2) gm/dl Hct 39.7 (35.5-45.6) % MCV 87 (84-94) fl MCH 28 (28-32) pg MCHC 32 (32-34) % RDW 15.2 (13.2-15.2) % Plt Count 419 (140-440) K/mm3 Sodium 143 (137-145) mmol/L Potassium 4.5 (3.6-5.0) mmol/L Chloride 101.1 (98-107) mmol/L Carbon Dioxide 23 (22-30) mmol/L Anion Gap 23 mmol/L BUN 21 H (9-20) mg/dL Creatinine 1.1 (0.8-1.5) mg/dL Estimated GFR > 60 ml/min BUN/Creatinine Ratio 19 % Glucose 138 H (75-100) mg/dL Calcium 10.4 H (8.4-10.2) mg/dL Magnesium 2.10 (1.7-2.3) mg/dL Total Creatine Kinase 173 H (55-170) units/L TSH 1.180 (0.270-4.200) mlU/mL Salicylates (2.8-20.0) mg/dL Acetaminophen (10.0-30.0) ug/mL Valproic Acid (50-100) ug/mL Plasma/Serum Alcohol (0-0.07) % 02/23/19 02/23/19 02/23/19 Range/Units 00:13 00:13 00:13 WBC (4.5-11.0) K/mm3 RBC (3.65-5.03) M/mm3 Hgb (11.8-15.2) gm/dl Hct (35.5-45.6) % MCV (84-94) fl MCH (28-32) pg MCHC (32-34) % RDW (13.2-15.2) % Plt Count (140-440) K/mm3 Sodium (137-145) mmol/L Potassium (3.6-5.0) mmol/L Chloride (98-107) mmol/L Carbon Dioxide (22-30) mmol/L Anion Gap mmol/L BUN (9-20) mg/dL Creatinine (0.8-1.5) mg/dL Estimated GFR ml/min BUN/Creatinine Ratio % Glucose (75-100) mg/dL Calcium (8.4-10.2) mg/dL Magnesium (1.7-2.3) mg/dL Total Creatine Kinase (55-170) units/L TSH (0.270-4.200) mlU/mL Salicylates < 0.3 L (2.8-20.0) mg/dL Acetaminophen < 5.0 L (10.0-30.0) ug/mL Valproic Acid 24.5 L (50-100) ug/mL Plasma/Serum Alcohol < 0.01 (0-0.07) % - EKG Data -: EKG Interpreted by Sc EKG shows normal: sinus rhythm Rate: tachycardia - EKG Data 02/23/19 01:46 EKG shows a sinus tachycardia, normal axis, QTC prolonged, rate 136 bpm, motion artifact, left ventricular hypertrophy, this is an abnormal EKG, there is no endorsement of chest pain, this EKG is not consistent with ST elevation myocardial infarction. - Radiology Data Radiology results: report reviewed, image reviewed Noncontrast CT scan of the brain is negative for acute disease. X-ray the chest is negative for acute disease. Critical care attestation.: If time is entered above; I have spent that time in minutes in the direct care of this critically ill patient, excluding procedure time. ED Disposition Clinical Impression: Psychosis Qualifiers: Psychosis type: other Qualified Code(s): F28 - Other psychotic disorder not due to a substance or known physiological condition Disposition: DC/TX-65 PSY HOSP/PSY UNIT Is pt being admited?: No Does the pt Need Aspirin: No Condition: Good Referrals: SHREYA HUNT MD [Primary Care Provider] - 3-5 Days
[2019-02-23 00:31] LABS: Hematocrit 39.7 % (35.5-45.6); Hemoglobin 12.9 gm/dl (11.8-15.2); Mean Corpuscular HGB Conc 32 % (32-34); Mean Corpuscular Volume 87 fl (84-94); Platelet Count 419 K/mm3 (140-440); Red Blood Count 4.57 M/mm3 (3.65-5.03); Red Cell Distribution Width 15.2 % (13.2-15.2)
[2019-02-23] MEDS: ATIVAN IM PRN ×2 (00:34→05:32)
--- NOTE | 2019-02-23 01:00 | Cat Scan Report ---
PROCEDURE: CT HEAD/BRAIN WO CON TECHNIQUE: Computerized tomography of the head was performed without contrast material. CT DOSE LENGTH PRODUCT: mGycm HISTORY: psychosis change in mentation COMPARISONS: 09/23/2018 . FINDINGS: Skull and scalp: Normal . Paranasal sinuses: There is minimal mucosal thickening in the right maxillary sinus. . Ventricles and subarachnoid spaces: Normal . Cerebrum: No evidence of hemorrhage, acute infarction or mass . Cerebellum and brainstem: No evidence of hemorrhage, acute infarction or mass . Vasculature: Normal . Other: None . ASPECTS: 10 IMPRESSION: Age-related atrophy. No evidence of acute stroke or hemorrhage. . This document is electronically signed by Abelino Huynh MD., February 23 2019 12:58:05 AM ET
[2019-02-23 01:03] LABS: BUN/Creatinine Ratio 19; Blood Urea Nitrogen 21 mg/dL (9-20); Calcium 10.4 mg/dL (8.4-10.2); Hemolysis Index 2
--- NOTE | 2019-02-23 01:07 | XRay Report ---
PROCEDURE: XR CHEST 1V AP TECHNIQUE: Chest radiograph single view. HISTORY: psychosis ? pna COMPARISONS: 09/23/2018 . FINDINGS: Heart: Normal. Mediastinum/Vessels: Normal. Lungs/Pleural space: Normal. Bony thorax: No acute osseous abnormality. Life support devices: None. IMPRESSION: No acute cardiopulmonary abnormality. This document is electronically signed by Abelino Huynh MD., February 23 2019 01:05:21 AM ET
[2019-02-23] MEDS ORDERED: TYLENOL PO PRN (01:47)
[2019-02-23 02:09] LABS: Bilirubin,Urine NEG (Negative); Blood,Urine NEG (Negative); Color,Urine Yellow (Yellow); Mucus,Urine FEW /HPF; Protein,Urine <15 mg/dL mg/dL (Negative); Urobilinogen,Urine < 2.0 mg/dL (<2.0)
[2019-02-23 02:12] LABS: Bacteria,Urine 1+ /HPF (Negative)
[2019-02-23 02:17] LABS: Amphetamine Screen,Urine PRESUMPTIVE NEGATIVE; Benzodiazepines Screen,Urine PRESUMPTIVE NEGATIVE; Cannabinoid Screen,Urine PRESUMPTIVE NEGATIVE; Cocaine Screen,Urine PRESUMPTIVE NEGATIVE; Methadone Screen,Urine PRESUMPTIVE NEGATIVE; Opiate Screen,Urine PRESUMPTIVE NEGATIVE
[2019-02-23] MEDS: MACROBID PO SCH ×2 (03:01→09:48)
--- NOTE | 2019-02-23 10:47 | Consultation ---
History of Present Illness - Reason for Consult Consult date: 02/23/19 Reason for consult: Mental Health Requesting physician: TRINIDAD MATHIAS - Chief Complaint Chief complaint: "You brought me here" - History of Present Psychiatric Illness 68 y.o. AA male who presented to the ER for mental health eval. Today the patient was calm, but disorganized during the assessment. He could not answer most of my questions asked of him. The patient had to be redirected several times to keep him on topic. Per the notes, the patient had bizarre behavior prior to his arrival to the ER. He was able to state that he was a [place] [facility] [place] Per the EMR, the patient may receive the monthly Invega injection, but he could not confirm or deny when asked. At this time, the patient is a poor historian. No gestures of SI/HI's. Medications and Allergies Allergies Allergy/AdvReac Type Severity Reaction Status Date / Time No Known Allergies Allergy Verified 12/20/18 15:09 Home Medications Medication Instructions Recorded Confirmed Last Taken Type Divalproex Sodium 250 mg PO QHS 12/01/18 02/23/19 Unknown History Donepezil HCl 5 mg PO HS 12/01/18 02/23/19 Unknown History Invega Sustenna 156 mg IM QMONTH 12/01/18 02/23/19 11/12/18 History OLANZapine 20 mg PO HS 12/01/18 02/23/19 Unknown History Olanzapine [Olanzapine Odt] 10 mg PO DAILY 12/01/18 02/23/19 Unknown History RisperDAL 2 mg PO HS 12/01/18 02/23/19 Unknown History Temazepam 15 mg PO QHS 12/01/18 02/23/19 Unknown History traZODone 100 mg PO QHS 12/01/18 02/23/19 Unknown History Nitrofurantoin [place]/M-Cryst 100 mg PO Q12HR #13 capsule 02/23/19 Unknown Rx [Macrobid CAP] Active Meds: Active Medications Acetaminophen (Tylenol) 650 mg PO Q6HR PRN PRN Reason: Pain Divalproex Sodium (Depakote Dr) 250 mg PO QHS [place] Donepezil HCl (Aricept) 5 mg PO QHS [place] Haloperidol Lactate (Haldol) 5 mg IM Q6HR PRN PRN Reason: Agitation Last Admin: 02/23/19 05:31 Dose: 5 mg Documented by: Lorazepam (Ativan) 2 mg IM Q4HR PRN PRN Reason: Agitation Last Admin: 02/23/19 05:32 Dose: 2 mg Documented by: Nitrofurantoin Macrocrystals (Macrobid) 100 mg PO BID [facility] Stop: 03/01/19 10:01 Last Admin: 02/23/19 09:48 Dose: 100 mg Documented by: Risperidone (Risperdal) 2 mg PO QHS [facility] Past psychiatric history - Past Medical History Past Medical History: other (Unable to obtain ) Past Surgical History: Other (Unable to obtain ) - past Psychiatric treatment and history psychiatric treatment history: Unable to obtain a psy hx and fam psy hx. 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.) Mental Status Exam - Vital signs Last Vital Signs Temp 97.6 F 02/23/19 09:21 Pulse 98 H 02/23/19 09:21 Resp 16 02/23/19 09:21 BP 133/83 02/23/19 09:21 Pulse Ox 99 02/23/19 09:21 - Exam Narrative exam: MSE: Appearance: calm Behavior: regular eye contact Speech: regular rate and tone Mood: unable to assess Affect: blunted Thought Process: disorganized Thought Content: no gestures of SI/HI's Motor Activity: sitting up in bed Cognition: A/O x3 Insight: poor Judgment: poor Results Result Diagrams: 02/23/19 00:13 02/23/19 00:13 Abnormal lab results 02/23/19 02/23/19 02/23/19 Range/Units 00:13 00:13 00:13 WBC 11.8 H (4.5-11.0) K/mm3 BUN 21 H (9-20) mg/dL Glucose 138 H (75-100) mg/dL Calcium 10.4 H (8.4-10.2) mg/dL Total Creatine Kinase 173 H (55-170) units/L Urine WBC (Auto) (0.0-6.0) /HPF Salicylates < 0.3 L (2.8-20.0) mg/dL Acetaminophen (10.0-30.0) ug/mL Valproic Acid 24.5 L (50-100) ug/mL 02/23/19 02/23/19 Range/Units 00:13 01:59 WBC (4.5-11.0) K/mm3 BUN (9-20) mg/dL Glucose (75-100) mg/dL Calcium (8.4-10.2) mg/dL Total Creatine Kinase (55-170) units/L Urine WBC (Auto) 39.0 H (0.0-6.0) /HPF Salicylates (2.8-20.0) mg/dL Acetaminophen < 5.0 L (10.0-30.0) ug/mL Valproic Acid (50-100) ug/mL All other labs normal. Assessment and Plan Assessment and plan: Impression: Unspecified Psychosis. Today the patient was calm during the assessment. DDx: Unspecified Neuro Cog DO, Bipolar DO with psychosis Recommendation/Plan: Continue 1013 and gather collateral information. Continue current medication regimen (Depakote and Aricept). Dispo: The patient was referred to inpatient psy services Will staff with Dr José Miguel Fermin.
[2019-02-23] MEDS ORDERED: GEODON IM PRN (12:03)
[2019-02-23] MEDS ORDERED: WATER FOR INJ Sterile (PF) 10 ML ONE (12:07)
[2019-02-23] MEDS ORDERED: GEODON IM ONE (12:16)
[2019-02-23 17:34] VITALS: BP 121/80
[2019-02-23] MEDS ORDERED: DIVALPROEX SODIUM 250 MG PO SCH (22:00)
[2019-02-23] MEDS ORDERED: DONEPEZIL HCL 5 MG PO SCH (22:00)
[2019-02-23] MEDS ORDERED: ARICEPT PO SCH (22:00)
[2019-02-23] MEDS ORDERED: RisperDAL PO SCH (22:00)
[2019-02-23] MEDS ORDERED: RISPERDAL 2 MG PO SCH (22:00)
== END 2019-02-23 17:15 ==
LOC: ED 23:45 → EEVIPCON 23:45 → ED 02-23 17:15
DX: F31.9 Bipolar disorder, unspecified (principal); F20.9 Schizophrenia, unspecified; Z79.899 Other long term (current) drug therapy
CPT/HCPCS: 36415; 70450; 71045; 80048; 80164; 80307; 81001; 82550; 83735; 84443; 85027; 87076; 87086; 87186; 93005; 93010; 96372; 99285; G0480; J1630; J2060; J3486; 80320